=== PATIENT | female | born 1945 | race Caucasian/White ===

== ENCOUNTER 2025-05-13 09:54 | Outpatient (CLI) | payer MEDICARE, OTHER ==
[~2025-05-13 09:54] MED LIST: Iopamidol 300 61% 100 ML VIAL FS ONE
[2025-05-13 11:21] LABS: Estimated GFR - POC 65.0
== END 2025-05-13 09:55 | disposition home or self-care (01) ==
LOC: CSHCT 09:54
PROVIDERS: ATTEND Family Medicine
DX: R31.9 Hematuria, unspecified (principal); N20.0 Calculus of kidney; K44.9 Diaphragmatic hernia without obstruction or gangrene
CPT/HCPCS: 36415; 74178; 82565